=== PATIENT | female | born 1940 | race Two or more races ===

== ENCOUNTER → 2017-11-12 | Emergency (ER) | payer OTHER ==
[2017-11-12] MEDS: IPRATROPIUM (NEB) 0.5 MG/2.5 ML AMP NEB (19:41)
[2017-11-12] MEDS: LEVALBUTEROL (NEB) 1.25 MG/0.5 ML AMP INH (19:41)
[2017-11-12] MEDS: PROMETHAZINE/CODEINE 5ML CUP PO (19:59)
== END | disposition home or self-care (01) ==
LOC: E/R 11:45
DX: J20.9 Acute bronchitis, unspecified (principal); B34.9 Viral infection, unspecified; I10 Essential (primary) hypertension
CPT/HCPCS: 71010; 94664; 99284-25

== ENCOUNTER 2018-01-11 06:09 | Day surgery (SDC) | payer OTHER ==
[2018-01-11] MEDS ORDERED: LIDOCAINE 2% (SDV) 5 ML INJ (17:29)
[2018-01-11] MEDS ORDERED: PROPOFOL 20 ML (17:29)
== END 2018-01-11 10:00 | disposition home or self-care (01) ==
LOC: GIL 06:09
DX: Z86.010 Personal history of colon polyps (principal); K64.8 Other hemorrhoids; E78.5 Hyperlipidemia, unspecified; I10 Essential (primary) hypertension
CPT/HCPCS: 45378